=== PATIENT | female | born 1985 | race Hispanic/Latino ===

== ENCOUNTER 2017-11-03 16:29 | Emergency (ER) | payer BC, OTHER ==
[2017-11-03] MEDS ORDERED: Lactated Ringer's 1,000 ML IV ONE (16:58)
[2017-11-03] MEDS ORDERED: Betamethasone Soluspan 30 mg/5mL Inj Susp IM ONE (17:00)
[2017-11-03 17:23] LABS: BASO # 0.1 K/uL (0.0-0.2); EOS # 0.1 K/uL (0.0-0.7); EOS % 0.8 % (0.0-4.0); HEMATOCRIT 36.4 % (34.0-47.0); LYMPH # 2.1 K/uL (1.0-4.3); LYMPH % 26.8 % (20.0-40.0); MEAN CELL VOLUME 93.9 fL (81.0-99.0); MEAN CORPUSCULAR HEMOGLOBIN 32.8 pg (27.0-31.0); MONO # 0.3 K/uL (0.0-0.8); NRBC % 0.1 % (0.0-2.0); RED CELL DISTRIBUTION WIDTH 14.5 % (11.5-14.5); WHITE BLOOD COUNT 7.8 K/uL (4.8-10.8)
[2017-11-03 17:51] LABS: ALB/GLOB RATIO 0.8 (1.0-2.1); ALKALINE PHOSPHATASE 266 U/L (38-126); ALT/SGPT 35 U/L (9-52); AST/SGOT 26 U/L (14-36); BILIRUBIN,TOTAL 0.4 mg/dL (0.2-1.3); BLOOD UREA NITROGEN 15 mg/dL (7-17); CALCIUM 8.3 mg/dl (8.6-10.4); CARBON DIOXIDE 18 mmol/L (22-30); CHLORIDE 109 mmol/L (98-107); GFR AFRICAN-AMERICAN > 60; GLUCOSE,RANDOM 83 mg/dL (65-105); POTASSIUM 4.4 mmol/L (3.6-5.2); SODIUM 134 mmol/L (132-148); TOTAL PROTEIN 6.7 g/dL (6.3-8.3); URIC ACID 8.3 mg/dL (2.2-7.5)
[2017-11-03 18:36] LABS: RBC URINE 21 /hpf (0-3); URINE BACTERIA RARE (<OCC); URINE BILIRUBIN NEGATIVE (NEGATIVE); URINE BLOOD NEGATIVE (NEGATIVE); URINE COLOR Yellow (YELLOW); URINE GLUCOSE (UA) NORMAL (Normal); URINE KETONE NEGATIVE (NEGATIVE); URINE LEUKOCYTE ESTERASE 3+ Leu/uL (Negative); URINE PROTEIN 2+ mg/dL (NEGATIVE); URINE UROBILINOGEN NORMAL mg/dL (0.2-1.0); WBC URINE 55 /hpf (0-5)
[2017-11-03 19:20] LABS: RBC URINE 28 /hpf (0-3); URINE BACTERIA RARE (<OCC); URINE BILIRUBIN NEGATIVE (NEGATIVE); URINE BLOOD 1+ (NEGATIVE); URINE COLOR Yellow (YELLOW); URINE GLUCOSE (UA) NORMAL (Normal); URINE KETONE NEGATIVE (NEGATIVE); URINE LEUKOCYTE ESTERASE 3+ Leu/uL (Negative); URINE PROTEIN 1+ mg/dL (NEGATIVE); URINE UROBILINOGEN NORMAL mg/dL (0.2-1.0); WBC URINE 67 /hpf (0-5)
--- NOTE | 2017-11-03 21:05 | OBHP ---
Datetime: 11/03/2017 16:59 IP Adm Impression: , intrauterine IP Chief Complaint Other: NST and Celestone IP Adm Impression Other: Twin gestation IP Admit Plan: Observation/Evaluation Admit Comment, IP Provider: Patient is a 32 year old at 35w2d NICANOR 12/06/17 presents to L+D for N ST and celestone administration. Patient is doing well, offers no complaints at this time. States oscar t she drank 3 bottles of sonam spring today. Endorses +FM, denies CTX, VB, LOF. Denies any headaches , dizziness, visual changes, RUQ/epigastric pain. Issues: Twin gestation - In vitro fertilization OB Hx: 1. Current [employer] Hx: LMP - unsure [facility] - 14 x regular x 5 days Denies hx of fibroids, ovarian cysts, STIs Denies hx of abnormal pap smears Allergies: NKDA Medications: PNV, Iron, Folic Acid Medical Hx: Denies Surgical Hx: D+C hysteroscopy Social Hx: Denies alcohol, tobacco, drug use; Family Hx: Mom age 59 - healthy; Dad age 62= - HTN; Maternal Grandfather - DM; Family Hx (+) Ovari an CA PE: See above A/P: 32 year old at 35w2d, twin gestation presents for NST and celestone 1. Stable, afebrile 2. CEFM and TOCO 3. LR bolus 4. CBC, CMP, LDH, Uric acid ordered 5. Plan discussed with attending OB addendum (18:52): NST reactive. CBC, CMP, UA results reviewed with Raven Rico given. W ill observe BPs q15min for 1 hour. Resend UA (clean catch). Yudelka Schultz DO PGY-1 Attending Note (rs): I agree with the above as documented by the Resident. Patient was seen , evaluated by me: each cervical examination was performed by me at 1656 and 1854 - cervical os is c losed, long, posterior (deviated to left fornix), medium in consistency; presenting part is high. BPs noted. Labs also noted for platelets 128K; U.A. 8.3. Fiirst U/A noted for 2+ protein and 3+ leuk esterase with WBC = 55. Decision made to observe BPs dorota 15miutes for the next 1 1/2 hours; an d to repeat U/A via clean catch specimen. If BP is trending up, will transfer to [facility] for further management, including possible delivery. This has been discussed with the patient and her hu maira. Plan: 1) As above. - as per, and discussed with, Dr. Mirna Mejia Addendum 2056 - Personnel Monitor spoke with Dr. Mejia. Per Dr. Mejia, upon the advice of Dr. Kaleb Devine [facility], patient is to be admitted to [facility] institution for second dose of celestone in 12 hours from the firstand delivery thereafter. To hs end, patient to be discharged from this unit and to proceed directly t o [facility] for admission - plan as above. This was conveyed to patient's by Dr. Mejia herself via telephone conversation. Patient can have something to eat before midnight; nothing to eat or drink after midnight. Assessment: 32 y.o. P0, 35w 2d, twin gestation, mild pre-eclampsia. Categroy 1 tracing x 2 - clini pawel stable. Plan: 1) Discharge home 2) NPO after midnight 3) Go directly to [facility] for further management, as above. - as per Dr. Mirna Mejia Contraction Comments Provider: irritability Comments, ACOG Physical Exam: VS: BP 146/80 HR 104 Gen: AAOx3 Abd: Soft, gravid Ext: No clubbing, cyanosis, edema SVE: Closed/thick/high, posterior EGA AdmitDate IP: 35.2 Vital Signs Provider: Reviewed IP Chief Complaint: Other Dilatation, Provider: Closed Effacement, Provider: thick Station, Provider: high
[2017-11-04 01:36] VITALS: BP 149/84; PULSE 79; RESP 20; TEMP 97.8; O2SAT 93
== END 2017-11-03 21:30 | disposition home or self-care (01) ==
LOC: C.EROB 16:29
DX: Z36.89 Encounter for other specified antenatal screening (principal)
CPT/HCPCS: 80053; 81001; 83615; 84550; 85025; 96372; 99283; J0702; J7120